=== PATIENT | male | born 1960 | race African-American/Black ===

== ENCOUNTER 2022-04-05 07:49 | Day surgery (SDC) | payer MEDICARE ==
[2022-04-05] MEDS ORDERED: LIDOCAINE HCL 1% 50 MG/5 ML VL PF IJ ONE (07:50)
[2022-04-05] MEDS ORDERED: Sodium Chloride 0.9(Preservative Free) 10 ML IJ ONE (07:50)
[2022-04-05] MEDS ORDERED: Depo-Medrol 40 MG/ML IM ONE (07:50)
[2022-04-05] MEDS ORDERED: ROBINUL ONE (08:18)
[2022-04-05] MEDS ORDERED: DIPRIVAN 200 MG/20 ML IV ONE (09:20)
--- NOTE | 2022-04-05 09:53 | XRAY ---
Indication: Caudal KALIA. Intraoperative fluoroscopy provided for 19 seconds. 3 digital spot images submitted for interpretation demonstrate caudal needle tip projecting mid sacrum. Small amount of contrast injected for needle tip placement. Correlate with intraoperative findings/report.
--- NOTE | 2022-04-05 09:56 | XRAY ---
19 seconds fluoroscopy time in surgery for caudal KALIA.
[2022-04-05] MEDS ORDERED: Lactated Ringers 1,000 ML IV ONE (10:22)
== END 2022-04-05 09:42 | disposition home or self-care (01) ==
LOC: SDC-PAIN 07:49
PROVIDERS: ATTEND Psychiatry & Neurology Pain Medicine
DX: M54.16 Radiculopathy, lumbar region (principal); E11.9 Type 2 diabetes mellitus without complications; Z79.899 Other long term (current) drug therapy
CPT/HCPCS: 62323; 72220; 77003; 82947; J1030; J2001; J2704; Q9966

== ENCOUNTER 2022-06-28 07:56 | Day surgery (SDC) | payer MEDICARE ==
[2022-06-28] MEDS ORDERED: LIDOCAINE HCL 1% 50 MG/5 ML VL PF IJ ONE (07:57)
[2022-06-28] MEDS ORDERED: Sodium Chloride 0.9(Preservative Free) 10 ML IJ ONE (07:57)
[2022-06-28] MEDS ORDERED: Depo-Medrol 40 MG/ML IM ONE (07:57)
[2022-06-28] MEDS ORDERED: DIPRIVAN 200 MG/20 ML IV ONE (09:04)
--- NOTE | 2022-06-28 09:45 | XRAY ---
Indication: Lumbar KALIA. Intraoperative fluoroscopy provided for 28 seconds. 2 digital spot image submitted for interpretation demonstrates posterior needle tip projecting posterior to the lumbosacral junction interspace. Small amount of contrast injected for needle tip placement. Correlate with intraoperative findings/report.
--- NOTE | 2022-06-28 09:49 | XRAY ---
28 seconds of fluoroscopy was used in surgery for a lumbar KALIA.
[2022-06-28] MEDS ORDERED: Lactated Ringers 1,000 ML IV ONE (13:53)
== END 2022-06-28 09:28 | disposition home or self-care (01) ==
LOC: SDC-PAIN 07:56
PROVIDERS: ATTEND Psychiatry & Neurology Pain Medicine
DX: M54.16 Radiculopathy, lumbar region (principal); E11.9 Type 2 diabetes mellitus without complications; Z79.899 Other long term (current) drug therapy
CPT/HCPCS: 62323; 72100; 77003; 82947; J1030; J2001; J2704; Q9966

== ENCOUNTER 2023-04-04 09:02 | Day surgery (SDC) | payer MEDICARE ==
[2023-04-04] MEDS ORDERED: XYLOCAINE-MPF 1% 5ML SDV IJ ONE (09:03)
[2023-04-04] MEDS ORDERED: Depo-Medrol 40 MG/ML IM ONE (09:03)
[2023-04-04] MEDS ORDERED: Sodium Chloride 0.9(Preservative Free) 10 ML IJ ONE (09:03)
[2023-04-04] MEDS ORDERED: DIPRIVAN 200 MG/20 ML IV ONE (11:16)
--- NOTE | 2023-04-04 13:08 | XRAY ---
Indication: Lumbar KALIA. Intraoperative fluoroscopy provided for 26 seconds. 3 digital spot image submitted for interpretation demonstrates posterior new tip projecting posterior to lumbosacral junction. Small amount of contrast injected for needle tip placement. Correlate with intraoperative findings/report.
--- NOTE | 2023-04-04 13:18 | XRAY ---
26 seconds of fluoroscopy was used in surgery for a lumbar KALIA.
[2023-04-04] MEDS ORDERED: Lactated Ringers 1,000 ML IV ONE (15:31)
== END 2023-04-04 11:57 | disposition home or self-care (01) ==
LOC: SDC-PAIN 09:02
PROVIDERS: ATTEND Psychiatry & Neurology Pain Medicine
DX: M54.16 Radiculopathy, lumbar region (principal); E11.9 Type 2 diabetes mellitus without complications; Z79.899 Other long term (current) drug therapy
CPT/HCPCS: 62323; 72100; 77003; 82947; J1030; J2704; Q9966

== ENCOUNTER 2024-02-13 09:23 | Day surgery (SDC) | payer MEDICARE ==
[2024-02-13] MEDS ORDERED: Xylocaine-Mpf 2% 5 Ml Vial IJ ONE (09:24)
[2024-02-13] MEDS ORDERED: DIPRIVAN 200 MG/20 ML IV ONE (11:25)
--- NOTE | 2024-02-13 12:18 | XRAY ---
Indication: Bilateral L4-S1 MBB. Intraoperative fluoroscopy provided for 12 seconds. Single digital spot image submitted for interpretation demonstrates posterior needle tips projecting over the expected left and right L4-S1 nerve roots. Correlate with intraoperative findings/report.
--- NOTE | 2024-02-13 12:36 | XRAY ---
12 seconds of fluoroscopy was used in surgery for a bilateral L4-S1 MBB.
== END 2024-02-13 11:55 | disposition home or self-care (01) ==
LOC: SDC-PAIN 09:23
PROVIDERS: ATTEND Psychiatry & Neurology Pain Medicine
DX: M47.816 Spondylosis without myelopathy or radiculopathy, lumbar region (principal); E11.9 Type 2 diabetes mellitus without complications
CPT/HCPCS: 64493; 64494; 72020; 77002; 82947; J2704

== ENCOUNTER 2024-04-02 07:16 | Day surgery (SDC) | payer MEDICARE, OTHER ==
[2024-04-02] MEDS ORDERED: BUPIVACAINE 0.5% VIAL IJ ONE (07:17)
[2024-04-02] MEDS ORDERED: DIPRIVAN 200 MG/20 ML IV ONE (08:56)
--- NOTE | 2024-04-02 11:03 | XRAY ---
Indication: Bilateral L4-S1 MBB. Intraoperative fluoroscopy provided for 24 seconds. Single digital spot image submitted for interpretation demonstrates posterior needle tips projecting over expected left and right L4-S1 nerve roots. Correlate with intraoperative findings/report.
--- NOTE | 2024-04-02 12:15 | XRAY ---
24 seconds of fluoroscopy was used in surgery for a bilateral L4-S1 MBB.
== END 2024-04-02 09:40 | disposition home or self-care (01) ==
LOC: SDC-PAIN 07:16
PROVIDERS: ATTEND Psychiatry & Neurology Pain Medicine
DX: M47.816 Spondylosis without myelopathy or radiculopathy, lumbar region (principal); E11.9 Type 2 diabetes mellitus without complications
CPT/HCPCS: 64493; 64494; 72020; 77002; 82947; J2704

== ENCOUNTER 2024-05-28 06:50 | Day surgery (SDC) | payer MEDICARE, OTHER ==
[2024-05-28] MEDS ORDERED: propofoL IV ONE ×2 (08:04→08:13)
--- NOTE | 2024-05-28 10:33 | XRAY ---
Indication: Right L4-S1 RFA. Intraoperative fluoroscopy provided for 37 seconds. 3 digital spot images submitted for interpretation demonstrates posterior needle tips projecting over expected right L4-S1 nerve roots. Correlate with intraoperative findings/report.
--- NOTE | 2024-05-28 12:02 | XRAY ---
37 seconds of fluoroscopy was used in surgery for a right L4-S1 RFA.
== END 2024-05-28 09:00 | disposition home or self-care (01) ==
LOC: SDC-PAIN 06:50
PROVIDERS: ATTEND Psychiatry & Neurology Pain Medicine
DX: M47.816 Spondylosis without myelopathy or radiculopathy, lumbar region (principal); E11.9 Type 2 diabetes mellitus without complications
CPT/HCPCS: 72100; 77002; 82947; J2704

== ENCOUNTER 2024-06-11 08:07 | Day surgery (SDC) | payer MEDICARE, OTHER ==
[2024-06-11] MEDS ORDERED: BUPIVACAINE 0.5% VIAL IJ ONE (08:08)
[2024-06-11] MEDS ORDERED: LIDOCAINE HCL 1% AMPUL 5 ML IJ ONE (08:08)
[2024-06-11] MEDS ORDERED: methylPREDNISolone acetate IM ONE (08:08)
[2024-06-11] MEDS ORDERED: Lactated Ringers 500 ML IV ONE (08:23)
[2024-06-11] MEDS ORDERED: propofoL IV ONE (09:26)
--- NOTE | 2024-06-11 10:24 | XRAY ---
Indication: Left L4-S1 RFA. Intraoperative fluoroscopy provided for 21 second. 5 digital spot image submitted for interpretation demonstrates posterior needle tips projecting over expected left L4-S1 nerve roots. Correlate with intraoperative findings/report.
--- NOTE | 2024-06-11 10:31 | XRAY ---
21 seconds of fluoroscopy was used in surgery for a left L4-S1 RFA.
== END 2024-06-11 10:05 | disposition home or self-care (01) ==
LOC: SDC-PAIN 08:07
PROVIDERS: ATTEND Psychiatry & Neurology Pain Medicine
DX: M47.817 Spondylosis without myelopathy or radiculopathy, lumbosacral region (principal); E11.9 Type 2 diabetes mellitus without complications
CPT/HCPCS: 64635; 64636; 72100; 77002; 82947; J1010; J2704